=== PATIENT | female | born 1955 | race Caucasian/White ===

== ENCOUNTER 2017-06-04 23:32 | Emergency (ER) | payer OTHER, MEDICARE ==
[~2017-06-04] VITALS: Ht 165.1 cm; Wt 78.8 kg
[2017-06-05 00:09] LABS: HEMATOCRIT 39.9 % (36.0-46.0); HEMOGLOBIN 13.8 G/DL (11.9-15.5); MCH 32.4 PG (29.0-34.0); MCHC 34.6 G/DL (30.0-36.0); MCV 93.7 FL (83-99); PLATELET COUNT 239 K/uL (156-360); RBC DIS.WIDTH-CV 12.7 % (11.8-14.6); RBC DIS.WIDTH-SD 44.1 % (39-53); RED BLOOD COUNT 4.26 M/uL (3.80-5.20); WHITE BLOOD COUNT 9.8 K/uL (4.1-10.2)
[2017-06-05 00:18] LABS: CHLORIDE 105 mEq/L (99-109); SODIUM 140 mEq/L (136-147)
[2017-06-05 00:20] LABS: GLUCOSE 136 mg/dL (70-99)
[2017-06-05 00:23] LABS: GFR ESTIMATE (CALCULATED) > 59 mL/min/
[2017-06-05 00:24] LABS: UREA NITROGEN (BUN) 26 mg/dL (9-23)
[2017-06-05 01:30] LABS: APPEARANCE CLEAR ((CLEAR)); BILIRUBIN NEGATIVE; BLOOD MODERATE; COLOR YELLOW ((YELLOW)); GLUCOSE (STRIP) NEGATIVE; KETONES 5; LEUKOCYTES TRACE; NITRITE NEGATIVE; PROTEIN (STRIP) NEGATIVE; SPECIFIC GRAVITY 1.023 (1.000-1.030); UROBILINOGEN 0.2 MG/DL (0.2-1.0)
[2017-06-05 01:40] LABS: BACTERIA NONE SEEN /HPF; EPITHELIAL CELLS RARE /HPF; MUCUS 1+ /LPF; UCUL ADDED? NO; WHITE BLOOD CELLS 0-5 /HPF (0-5)
[2017-06-05] MEDS ORDERED: MOTRIN600 MG PO (05:16)
[2017-06-05] MEDS ORDERED: FLOMAX0.4 MG PO (05:16)
[2017-06-05] MEDS ORDERED: LORTAB 5-325 M1 EACH PO (05:16)
[2017-06-05] MEDS ORDERED: ZOFRAN ODT4 MG PO (05:16)
[2017-06-05 05:57] VITALS: BP 152/81
== END 2017-06-05 05:59 | disposition home or self-care (01) ==
LOC: EME 23:32
DX: N13.2 Hydronephrosis with renal and ureteral calculous obstruction (principal); Z98.890 Other specified postprocedural states; Z88.0 Allergy status to penicillin
CPT/HCPCS: 74176; 80048; 81003; 85027; 99281; 99285; J1885; J2405; J3010; J7040